=== PATIENT | male | born 1985 | race Caucasian/White ===

== ENCOUNTER 2018-01-28 07:28 | Emergency (ER) | payer BC, OTHER ==
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
[2018-01-28] MEDS ORDERED: Ibuprofen 800 MG Tab PO ONE (09:35)
[2018-01-28 09:45] VITALS: BP 112/70
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
== END 2018-01-28 09:51 | disposition home or self-care (01) ==
LOC: MW.ED 07:28
DX: S16.1XXA Strain of muscle, fascia and tendon at neck level, initial encounter (principal); V49.59XA Passenger injured in collision with other motor vehicles in traffic accident, initial encounter
CPT/HCPCS: 70450; 72125; 82962; 99285; A9270; G0390